=== PATIENT | female | born 1960 | race Caucasian/White ===

== ENCOUNTER 2018-09-16 13:33 | Day surgery (SDC) | payer MEDICAID ==
[2018-09-08 11:09] LABS: BASOPHILS # (AUTO) 0.1 X10'3 (0-0.2); BASOPHILS % (AUTO) 0.7 % (0-1); EOSINOPHILS # (AUTO) 0.2 X10'3 (0-0.9); EOSINOPHILS % (AUTO) 2.1 % (0-6); LYMPHOCYTES # (AUTO) 2.6 X10'3 (1.1-4.8); LYMPHOCYTES % (AUTO) 33.9 % (21-51); MEAN CORPUSCULAR HEMOGLOBIN 32.3 PG (27.0-31.0); MEAN CORPUSCULAR HGB CONC 33.5 g/dL (33.0-36.5); MEAN CORPUSCULAR VOLUME 96.4 FL (78-98); MEAN PLATELET VOLUME 7.7 FL (7.4-10.4); MONOCYTES # (AUTO) 0.6 X10'3 (0-0.9); MONOCYTES % (AUTO) 7.7 % (2-12); NEUTROPHILS # (AUTO) 4.2 X10'3 (1.8-7.7); NEUTROPHILS % (AUTO) 55.6 % (42-75); PRE OP HEMATOCRIT 38.2 % (35.0-45.0); PRE OP HEMOGLOBIN 12.8 g/dL (12.0-16.0); PRE OP PLATELET COUNT 242 X10'3 (140-440); RED BLOOD COUNT 3.97 X10'6 (4.20-5.60); RED CELL DISTRIBUTION WIDTH 12.8 % (11.5-14.5)
[2018-09-08 11:23] LABS: ALBUMIN 3.8 G/DL (3.4-5.0); ALBUMIN/GLOBULIN RATIO 1.1 (1.1-1.5); ALKALINE PHOSPHATASE 71 IU/L (46-116); BLOOD UREA NITROGEN 16 MG/DL (7-18); BUN/CREATININE RATIO 21.9 (6.6-38.0); CALCIUM 9.6 MG/DL (8.5-10.1); CHLORIDE 105 MMOL/L (99-107); CREATININE 0.73 MG/DL (0.40-0.90); PRE OP ALT 18 U/L (30-65); PRE OP ANION GAP 4 (8-16); PRE OP AST 10 U/L (10-37); PRE OP BILIRUB, TOTAL 0.3 MG/DL (0.0-1.0); PRE OP GLUCOSE 91 MG/DL (70-104); PRE OP POTASSIUM 4.1 MMOL/L (3.4-5.1); PRE OP SODIUM 141 MMOL/L (135-145); TOTAL CARBON DIOXIDE 31.9 MMOL/L (24-32); TOTAL PROTEIN 7.3 G/DL (6.4-8.2); eGFR 82 ML/MIN
[~2018-09-16] VITALS: Ht 154.9 cm; Wt 78.0 kg
[2018-09-16] VITALS (7 sets, daily range): BP systolic 111–128; BP diastolic 63–79
[~2018-09-16 13:33] MED LIST: CHOL100046 PO; ESCI10TA54 PO; MULT-933 PO; NAPR250T4 PO
[2018-09-16] MEDS ORDERED: cefazolin/dext.iso 2gm/100 ML IV ONE (14:00)
[2018-09-16] MEDS ORDERED: ringers solution, lacted 1,000 ML IV SCH ×2 (14:00→15:28)
[2018-09-16] MEDS ORDERED: famotidine 20mg tablet PO ONE (14:00)
[2018-09-16] MEDS ORDERED: vancomycin inj 1,500 MG in normal saline 300ml IV soln IV ONE (14:00)
[2018-09-16] MEDS ORDERED: BUPIVAcaine/PF 2.5 mg/ml (0.25%) 30ml vial ONE (15:05)
[2018-09-16] MEDS ORDERED: ondansetron/PF 4mg/2ml inj IV PRN (15:30)
[2018-09-16] MEDS ORDERED: morphine 4 MG/ML inj SYRINge IV PRN ×2 (15:30)
[2018-09-16] MEDS ORDERED: meperidine/PF 25mg/ml syringe IV PRN ×3 (15:30)
[2018-09-16] MEDS ORDERED: proCHLORperazine 10 MG/2 ml inj IV PRN (15:30)
[2018-09-16] MEDS ORDERED: LIDOcaine 0.5% (5mg/ml) 50ml vial ONE (15:49)
[2018-09-16] MEDS ORDERED: fentaNYL/PF 50MCG/1 ML 2ML syringe ONE (15:52)
[2018-09-16] MEDS ORDERED: methylPREDNISolone sod succ 125mg/2ml vial ONE (15:56)
[2018-09-16] MEDS ORDERED: midazolam 2 mg/2 ml injection ONE (16:04)
[2018-09-16] MEDS ORDERED: diphenhydrAMINE 50 mg/ml inj ONE (16:13)
--- NOTE | 2018-09-16 16:40 | NUR ---
Received from OR via BED, accompanied by Anesthesiologist DR WHITE-- and report given by Anesthesiolgist. PATIENT A&OX4, DENIES PAIN, V/S WNL, NEUROVASCULAR CHECKS INTACT, 20G PIV LUE, SCD ON, RIGHT WRIST SPLINT DRESSING CDI
--- NOTE | 2018-09-16 17:20 | NUR ---
PATIENT A&OX4, DENIES PAIN, V/S WNL, NEUROVASCULAR CHECKS INTACT, 20G PIV LUE D/C, SCD OFF, RIGHT WRIST SPLINT DRESSING CDI. I HAVE REVIEWED D/C INSTRUCTIONS WITH PATIENT AND FAMILY AND THEY HAVE VERBALIZED UNDERSTANDING. PATIENT D/C HOME WITH ALL BELONGINGS AND FAMILY GAVE TRANSPORT HOME.
== END 2018-09-16 17:20 | disposition home or self-care (01) ==
LOC: PAS 13:33
PROVIDERS: ATTEND Orthopaedic Surgery
DX: M65.4 Radial styloid tenosynovitis [de Quervain] (principal); M66.231 Spontaneous rupture of extensor tendons, right forearm; Z79.899 Other long term (current) drug therapy; E66.9 Obesity, unspecified; Z68.32 Body mass index [BMI] 32.0-32.9, adult; Z87.891 Personal history of nicotine dependence; F32.89 Other specified depressive episodes; E66.8 Other obesity
CPT/HCPCS: 25000; 25270; 36415; 80053; 85025; 93005; J0690; J1200; J2001; J2250; J2930; J3010; J3370; J3490; A6250; A6449; A7000; J7120

== ENCOUNTER 2024-10-13 15:02 | Outpatient (CLI) | payer MEDICAID ==
[~2024-10-13 15:02] MED LIST changes: +ESCI-8 PO; -ESCI10TA54 PO; +NAPR-1170 PO; -NAPR250T4 PO; +diatrizoate meglumine 300mg/ml (30%) 300ml UR ONE
--- NOTE | 2024-10-13 20:26 | RADIOLOGY REPORT ---
Indication: SEROUS SURFACE PAPILLARY TUMOR Technique: CT axial images of the abdomen and pelvis are obtained with contrast administered into th e Crespo catheter . Coronal and sagittal reformats were obtained. Radiation Dose Information: CTDI volume is 27.6 mGy. Dose-length product is 1843 mGy*cm Comparison: None FINDINGS: The lung bases demonstrate no pleural effusion. Adrenal glands, spleen, pancreas and liver unremarkable in shape. No CT evidence for cholelithiasis. No hydronephrosis /nephrolithiasis. Stomach partially distended. Small bowel loops are normal in caliber. Colonic diverticular disease. Normal appendix. Abdominal aortic atherosclerotic disease. Bladder distended with contrast. Postsurgical changes of th e pelvis. No evidence for contrast extravasation from the bladder. Bladder wall thickening/ trabecul ation. There are 2 perihepatic lymph nodes measuring 9 mm and 7 mm in just adjacent to the intrahepatic IVC. Right pelvic sidewall lymph nodes measuring up to 10 mm. Left pelvic sidewall lymph nodes up to 6 mm. No inguinal lymphadenopathy. Mzom-kh-aukpynig bilateral sacroiliac degenerative joint disease. Wywg-jk-hlywgzep thoracolumbar dege nerative disc disease. IMPRESSION: No evidence of contrast extravasation from the bladder. Postsurgical changes pelvis. Bladder wall thickening/ trabeculation which could be secondary to neurogenic bladder, outlet obstruc tion, cystitis, infiltrative etiologies/ neoplasm. Postsurgical changes of the pelvis, likely hysterectomy/ bilateral oophorectomy. Correlate with surgi anna history. There are 2 perihepatic lymph nodes adjacent to the intrahepatic IVC measuring 9 mm and 7 mm which co uld represent metastatic lymph nodes. Recommend correlation with PET scan. There are also pelvic cristhian ewall lymph nodes as described above measuring up to 10 mm which could represent jose roberto spread of dise ase. Colonic diverticular disease. Mzzq-kz-wvxjwher thoracolumbar degenerative disc disease.
== END 2024-10-13 23:59 | disposition home or self-care (01) ==
LOC: 64 CT 15:02
PROVIDERS: ATTEND Obstetrics & Gynecology
DX: D39.10 Neoplasm of uncertain behavior of unspecified ovary (principal); K57.30 Diverticulosis of large intestine without perforation or abscess without bleeding; K31.89 Other diseases of stomach and duodenum; N32.89 Other specified disorders of bladder; M51.35 Other intervertebral disc degeneration, thoracolumbar region; I70.0 Atherosclerosis of aorta; M19.09 Primary osteoarthritis, other specified site; Z97.8 Presence of other specified devices; Z98.890 Other specified postprocedural states
CPT/HCPCS: 74177; Q9958